=== PATIENT | male | born 1970 | race Caucasian/White ===

== ENCOUNTER 2017-09-05 17:32 | Emergency (ER) | payer OTHER ==
[2017-09-05] MEDS ORDERED: Lactated Ringers 1,000 ML IV ONE (17:49)
--- NOTE | 2017-09-05 17:49 | EDM.PDOC ---
ED HPI GENERAL MEDICAL PROBLEM - General Chief Complaint: Abdominal Pain Stated Complaint: Upper abdominal pain Time Seen by Provider: 09/05/17 17:40 Source of Information: Reports: Patient, Family, Old Records, RN, RN Notes Reviewed History Limitations: Reports: No Limitations - History of Present Illness INITIAL COMMENTS - FREE TEXT/NARRATIVE: Patient presents to the ED at [facility] complaining of right side abdominal pain radiating to the LUQ. Pain started last night after patient ate chicken sandwiches from a gas station. He states he has chills, N/V, diarrhea. No focal neurological problems. No chest pain or SOB. Pain is waxes and wains but is always present to some degree. Feels like a pressure type of pain. Patient was sent to us from [facility] for further work up. The clinic did do a CBC which showed an elevated WBC count of 12. Onset: Gradual Onset Date: 09/04/17 Duration: Waxing/Waning Location: Reports: Abdomen Quality: Reports: Pressure Severity: Moderate Improves with: Reports: Rest Worsens with: Reports: Movement Context: Denies: Exercise, Sick Contact, Trauma Associated Symptoms: Reports: Fever/Chills, Nausea/Vomiting Treatments [employer]: Reports: Other (see below) (None) Middle Abdominal Pain Score (Numeric/FACES): 7 - Related Data Allergies Allergy/AdvReac Type Severity Reaction Status Date / Time No Known Allergies Allergy Verified 09/05/17 18:29 Home Meds: Home Meds Aspirin 81 mg PO DAILY 09/05/17 [History] Biotin 10 mg PO DAILY 09/05/17 [History] Cholecalciferol (Vitamin D3) [Vitamin D3] 1,000 unit PO DAILY 09/05/17 [History] FA/Lycopene/Lut/MV,Ca,Iron,Min [Centrum] 1 tab PO DAILY 09/05/17 [History] [place]-3 Fatty Acids/Fish Oil [Fish Oil 1,200 mg Softgel] 1 each PO DAILY [History] Sildenafil [Viagra] 0.5 mg PO BEDTIME PRN 09/05/17 [History] atorvaSTATin [Lipitor] 20 mg PO BEDTIME 09/05/17 [History] metFORMIN [Glucophage XR] 2,000 mg PO WITHDINNER 09/05/17 [History] ED ROS GENERAL - Review of Systems Review Of Systems: See Below Constitutional: Reports: Fever, Chills. Denies: Weakness, Decreased Appetite Respiratory: Denies: Shortness of Breath, Cough Cardiovascular: Denies: Chest Pain, Palpitations GI/Abdominal: Reports: Abdominal Pain, Diarrhea, Nausea, Vomiting. Denies: Black Stool, Bloody Stool Skin: Reports: No Symptoms Neurological: Reports: No Symptoms. Denies: Dizziness, Headache ED EXAM, GI/ABD - Physical Exam Exam: See Below Exam Limited By: No Limitations General Appearance: Alert, No Apparent Distress Respiratory/Chest: No Respiratory Distress, Lungs Clear, Normal Breath Sounds Cardiovascular: Normal Peripheral Pulses, Regular Rate, Rhythm GI/Abdominal Exam: Rigid, Tender (RLQ extending around to the LUQ), Abnormal Bowel Sounds (Hypoactive) Neurological: Alert, Oriented Skin Exam: Warm, Dry, Intact, Normal Color Course - Vital Signs Last Recorded V/S: Last Vital Signs Temp 37.1 C 09/05/17 17:35 Pulse 95 09/05/17 19:14 Resp 16 09/05/17 19:14 BP 127/78 09/05/17 19:14 Pulse Ox 93 L 09/05/17 19:14 - Orders/Labs/Meds Orders: Active Orders 24 hr Category Date Time Status Abdomen Pelvis w Cont [CT] Stat Exams 09/05/17 18:30 Taken UA W/MICROSCOPIC [URIN] Stat Lab 09/05/17 18:30 Ordered Sodium Chloride 0.9% [Saline Flush] Med 09/05/17 17:50 Active 10 ml FLUSH ASDIRECTED PRN Peripheral IV Insertion Adult [OM.PC] Routine Oth 09/05/17 17:50 Ordered Medication Orders Sodium Chloride (Saline Flush) 10 ml FLUSH ASDIRECTED PRN PRN Reason: Keep Vein Open Labs: Laboratory Tests 09/05/17 09/05/17 09/05/17 Range/Units 18:00 18:00 18:30 Sodium 137 (136-145) mmol/L Potassium 4.6 (3.5-5.1) mmol/L Chloride 100 (98-107) mmol/L Carbon Dioxide 23 (21-32) mmol/L Anion Gap 18.6 (10-20) mmol/L BUN 19 H (7-18) mg/dL Creatinine 1.2 (0.70-1.30) mg/dL Est Cr Clr Drug Dosing TNP Estimated GFR (MDRD) > 60 Glucose 279 H (74-106) mg/dL Lactic Acid 3.1 H* (0.4-2.0) mmol/L Calcium 8.6 (8.5-10.1) mg/dL Corrected Calcium 8.84 (8.5-10.1) mg/dL Total Bilirubin 0.7 (0.2-1.0) mg/dL AST 60 H (15-37) U/L ALT 91 H (16-63) U/L Alkaline Phosphatase 78 (46-116) U/L C-Reactive Protein 1.7 H (<=0.9) mg/dL Total Protein 7.5 (6.4-8.2) g/dL Albumin 3.7 (3.4-5.0) g/dL Globulin 3.8 Albumin/Globulin Ratio 0.97 Amylase 32 (25-115) U/L Lipase 91 (73-393) U/L Urine Color Dark yellow H (YELLOW) Urine Appearance Slightly cloudy H (CLEAR) Urine pH 5.5 (5.0-8.0) Ur Specific [place] >=1.030 Urine Protein 100 H (NEGATIVE) mg/dL Urine Glucose (UA) 500 H (NEGATIVE) mg/dL Urine Ketones 15 H (NEGATIVE) mg/dL Urine Occult Blood Negative (NEGATIVE) Urine Nitrite Negative (NEGATIVE) Urine Bilirubin Negative (NEGATIVE) Urine Urobilinogen 0.2 (0.2) EU/dL Ur Leukocyte Esterase Negative (NEGATIVE) Urine RBC 0-5 (NOT SEEN) /HPF Urine WBC 0-5 (NOT SEEN) /HPF Ur Squamous Epith Cells Not seen (NEGATIVE) /HPF Urine Bacteria Few H (NEGATIVE) /HPF Hyaline Casts Occasional H (NEGATIVE) /HPF Urine Mucus Many H (NEGATIVE) /LPF Meds: Medications Generic Name Dose Route Start Last Admin Trade Name Freq PRN Reason Stop Dose Admin Sodium Chloride 10 ml 09/05/17 17:50 Saline Flush FLUSH ASDIRECTED PRN Keep Vein Open Discontinued Medications Generic Name Dose Route Start Last Admin Trade Name Freq PRN Reason Stop Dose Admin Lactated Ringer's 1,000 mls @ 999 mls/hr 09/05/17 17:49 09/05/17 18:07 Ringers, Lactated IV 09/05/17 18:49 999 mls/hr ONETIME ONE Administration Ketorolac Tromethamine 30 mg 09/05/17 17:50 09/05/17 18:05 Toradol IVPUSH 09/05/17 17:51 30 mg ONETIME ONE Administration Ondansetron HCl 4 mg 09/05/17 17:50 09/05/17 18:08 Zofran IVPUSH 09/05/17 17:51 4 mg ONETIME ONE Administration - Radiology Interpretation Free Text/Narrative:: CT Abd/Pelvis: No acute findings - see scanned document in EMR CT Results Date: 09/05/17 CT Results Time: 19:37 Departure - Departure Time of Disposition: 19:44 Disposition: Home, Self-Care 01 Condition: Good Clinical Impression: Viral gastroenteritis - Discharge Information Instructions: Viral Gastroenteritis, Adult Referrals: Neema Mcdaniel MD [Primary Care Provider] - Forms: ED Department Discharge Additional Instructions: 1. Stay well hydrated and rest 2. May take Tylenol for pain 3. Control your blood sugars! 4. Eat a bland diet for the next few days 5. See your Primary provider as symptoms warrant 6. Call us with any questions/concerns - Problem List Review Problem List Initiated/Reviewed/Updated: Yes - My Orders Last 24 Hours: My Active Orders 09/05/17 17:50 Sodium Chloride 0.9% [Saline Flush] 10 ml FLUSH ASDIRECTED PRN Peripheral IV Insertion Adult [OM.PC] Routine 09/05/17 18:30 Abdomen Pelvis w Cont [CT] Stat UA W/MICROSCOPIC [URIN] Stat - Assessment/Plan Last 24 Hours: My Active Orders 09/05/17 17:50 Sodium Chloride 0.9% [Saline Flush] 10 ml FLUSH ASDIRECTED PRN Peripheral IV Insertion Adult [OM.PC] Routine 09/05/17 18:30 Abdomen Pelvis w Cont [CT] Stat UA W/MICROSCOPIC [URIN] Stat Assessment:: Viral Gastroenteritis Plan: No acute pathologies found with labs or CT. Patient feeling much better after Zofran and Toradol. Will discharge home and have patient follow up with PCP as needed.
[2017-09-05] MEDS ORDERED: Ketorolac 30 MG/ML SDV IVPUSH ONE (17:50)
[2017-09-05] MEDS ORDERED: Ondansetron 4 MG/2 ML SDV IVPUSH ONE (17:50)
[2017-09-05] MEDS ORDERED: Sodium Chloride 0.9% 10 ML Syringe FLUSH PRN (17:50)
[2017-09-05 18:28] LABS: CHLORIDE,CL 100 mmol/L (98-107); SODIUM,NA 137 mmol/L (136-145)
== END 2017-09-05 20:00 | disposition home or self-care (01) ==
LOC: VM.ED 17:32
DX: A08.4 Viral intestinal infection, unspecified (principal); Z79.82 Long term (current) use of aspirin; Z79.899 Other long term (current) drug therapy
CPT/HCPCS: 36415; 74177; 80053; 81001; 82150; 83605; 83690; 86140; 96361; 96374; 96375; 99284; J1885; J2405; J7120

== ENCOUNTER 2022-08-28 21:46 | Emergency (ER) | payer OTHER ==
[2022-08-28] MEDS ORDERED: Sodium Chloride 0.9% 10 ML Syringe FLUSH PRN (21:55)
[2022-08-28 22:32] LABS: CHLORIDE,CL 103 mmol/L (98-107); SODIUM,NA 140 mmol/L (136-145)
[2022-08-28 22:37] LABS: ESTIMATED GFR 90 mL/min (>=60)
[2022-08-28] MEDS: predniSONE 20 MG Tab PO ONE (23:03)
[2022-08-28] MEDS: valACYclovir 1,000 MG Tab PO ONE (23:04)
[2022-08-29] MEDS ORDERED: predniSONE 20 MG Tab PO ONE ×2 (22:51→22:55)
== END 2022-08-28 23:08 | disposition home or self-care (01) ==
LOC: VM.ED 21:46
DX: G51.0 Bell's palsy (principal); E78.00 Pure hypercholesterolemia, unspecified; I10 Essential (primary) hypertension; E11.9 Type 2 diabetes mellitus without complications; Z79.82 Long term (current) use of aspirin; Z79.84 Long term (current) use of oral hypoglycemic drugs; Z79.899 Other long term (current) drug therapy
CPT/HCPCS: 70450; 80053; 80307; 85025; 86140; 87476; 99284; 99285; A9270-GY; J7512